=== PATIENT | male | born 1960 | race Two or more races ===

== ENCOUNTER → 2017-11-05 | Outpatient (CLI) | payer MEDICARE | END | disposition home or self-care (01) | LOC: RAD 09:50 | PROVIDERS: ATTEND Registered Nurse | DX: R13.10 Dysphagia, unspecified (principal) | CPT/HCPCS: 74230 ==

== ENCOUNTER → 2017-11-07 | Outpatient (CLI) | payer MEDICARE ==
[2017-11-07 13:33] LABS: ABG COLLECTION SITE LEFT RADIAL; COLLATERAL CIRCULATION TESTING NORMAL
== END | disposition home or self-care (01) ==
LOC: CARD 12:44
PROVIDERS: ATTEND Internal Medicine Critical Care Medicine
DX: R06.02 Shortness of breath (principal)
CPT/HCPCS: 36415; 82803

== ENCOUNTER 2018-01-14 07:39 | Day surgery (SDC) | payer MEDICARE ==
[~2018-01-14] VITALS: Ht 160 cm; Wt 65.9 kg
[2018-01-14] MEDS ORDERED: SODIUM CHLORIDE 0.9% 1,000 ML IV SCH (08:06)
[2018-01-14] MEDS ORDERED: CEFAZOLIN PMX 1GM/50ML 50 ML IV STA (08:06)
[2018-01-14] MEDS ORDERED: CEFAZOLIN PMX 1GM/50ML 50 ML ONE (08:11)
[2018-01-14] MEDS ORDERED: PLEASE ENTER HEIGHT AND WEIGHT MC SCH (08:30)
[2018-01-14] MEDS ORDERED: LIDOCAINE 2%, 20ML ONE ×2 (08:50)
[2018-01-14 08:55] VITALS: BP 119/82
[2018-01-14] MEDS ORDERED: FENTANYL PF 100 MCG/2ML ONE (08:56)
[2018-01-14] MEDS ORDERED: FLUMAZENIL 0.1 MG/1 ML, 5ML ONE (08:57)
[2018-01-14] MEDS ORDERED: NALOXONE 1 MG/ML, 2ML ONE (08:57)
[2018-01-14] MEDS ORDERED: MIDAZOLAM 1 MG/ML, 2ML ONE (08:57)
== END 2018-01-14 13:50 ==
LOC: OUT 07:39
PROVIDERS: ATTEND Psychiatry & Neurology Neurology
DX: Z45.2 Encounter for adjustment and management of vascular access device (principal); G12.21 Amyotrophic lateral sclerosis; Z51.11 Encounter for antineoplastic chemotherapy
CPT/HCPCS: 36561; 76937; 77001; 99156; 99157; C1788; C1894; J0690; J1642; J2250; J3010; J3490; J7030; J2310

== ENCOUNTER 2018-08-07 09:35 | Day surgery (SDC) | payer MEDICARE ==
[~2018-08-07] VITALS: Ht 160 cm; Wt 65.9 kg
[2018-08-07] MEDS ORDERED: SODIUM CHLORIDE 0.9% 1,000 ML IV SCH (10:11)
[2018-08-07 10:46] VITALS: BP 118/78
[2018-08-07] MEDS ORDERED: LIDOCAINE-MPF 2%, 2ML ONE (10:56)
[2018-08-07] MEDS ORDERED: FENTANYL PF 100 MCG/2ML ONE (11:00)
[2018-08-07] MEDS ORDERED: MIDAZOLAM 1 MG/ML, 5ML ONE (11:01)
[2018-08-07] MEDS ORDERED: FLUMAZENIL 0.1 MG/1 ML, 5ML ONE (11:01)
[2018-08-07] MEDS ORDERED: NALOXONE 1 MG/ML, 2ML ONE (11:01)
== END 2018-08-07 14:05 | disposition home or self-care (01) ==
LOC: OUT 09:35
PROVIDERS: ATTEND Psychiatry & Neurology Neurology
DX: Z45.2 Encounter for adjustment and management of vascular access device (principal); G12.21 Amyotrophic lateral sclerosis; Z88.8 Allergy status to other drugs, medicaments and biological substances; Z91.09 Other allergy status, other than to drugs and biological substances
CPT/HCPCS: 36590; 77001; 99156; 99157; J2250; J3010; J3490; J7030; J2310

== ENCOUNTER 2019-01-16 16:46 | Inpatient (IN) | payer MEDICARE ==
[~2019-01-16] VITALS: Ht 160 cm; Wt 56.4 kg
--- NOTE | 2019-01-16 17:16 | NUR ---
DAUGHTER STATED THAT PT HAS ALS AND HAS A COUGH FOR TWO DAYS. HE IS TAKING HYDROXYZINE BUT IT IS NOT HELPING.
[2019-01-16 17:29] LABS: RAPID INFLUENZA A Negative (Negative); RAPID INFLUENZA B Negative (Negative)
[2019-01-16] MEDS ORDERED: ALBUTEROL/IPRATROPIUM 2.5MG/0.5MG, 3 ML NPPB ONE (17:30)
--- NOTE | 2019-01-16 17:31 | NUR ---
Lab at bedside.
[2019-01-16] MEDS ORDERED: DEXT1CAP PO (17:34)
[2019-01-16] MEDS ORDERED: ALBUTEROL/IPRATROPIUM 2.5MG/0.5MG, 3 ML ONE (17:39)
[2019-01-16 17:51] LABS: BASOPHILS # (AUTO) 0.01 x10^3/uL (0-0.1); BASOPHILS % (AUTO) 0 % (0-1); EOSINOPHILS # (AUTO) 0.11 x10^3/uL (0-0.4); EOSINOPHILS % (AUTO) 1 % (1-7); LYMPHOCYTES # (AUTO) 0.82 x10^3/uL (1-3.4); LYMPHOCYTES % (AUTO) 8 % (22-44); MD NO; MEAN CORPUSCULAR HGB CONC 33.3 g/dL (33.2-36.2); MEAN CORPUSCULAR VOLUME 89.9 fL (81-97); MEAN PLATELET VOLUME 11.7 fL (7.4-10.4); MONOCYTES # (AUTO) 0.72 x10^3/uL (0.2-0.8); MONOCYTES % (AUTO) 7 % (2-9); NEUTROPHILS # (AUTO) 8.07 x10^3/uL (1.8-6.8); NEUTROPHILS % (AUTO) 83 % (42-75); PLATELET COUNT 184 x10^3/uL (130-400); RED BLOOD COUNT 5.85 x10^6/uL (4.38-5.82); RED CELL DISTRIBUTION WIDTH 15.9 % (9.4-14.8)
[2019-01-16 18:03] LABS: ALBUMIN 4.2 g/dL (3.4-5.0); ANION GAP 9 mmol/L (5-15); CALCIUM 9.5 mg/dL (8.5-10.1); CHLORIDE 111 mmol/L (98-107); CREATININE 0.69 mg/dL (0.7-1.3)
--- NOTE | 2019-01-16 18:14 | NUR ---
Pt reports feeling "a little better" after RT treatment. Remains on cont pulse ox, RN offered to help assist pt into a sitting position on [facility] to assist with breathing, pt refuses, states he is more comfortable lying on his left side.
[2019-01-16] MEDS ORDERED: AZITHROMYCIN 500 MG in SODIUM CHLORIDE 0.9% 250 ML IVPB ONE (18:30)
[2019-01-16] MEDS ORDERED: CEFTRIAXONE 1,000 MG in SODIUM CHLORIDE 0.9% 50 ML IVPB ONE (18:30)
[2019-01-16] MEDS ORDERED: SODIUM CHLORIDE FLUSH 10ML SYR IVF ONE (18:30)
[2019-01-16] MEDS ORDERED: CEFTRIAXONE PMX 1GM/50ML 50 ML ONE (18:50)
--- NOTE | 2019-01-16 19:13 | NUR ---
IV started, abx ready to start, per MD cultures to be drawn, no cultures ordered, will place as verbal order
--- NOTE | 2019-01-16 19:15 | NUR ---
First set of cultures drawn, awaiting second set from lab
[2019-01-16] MEDS ORDERED: SODIUM CHLORIDE FLUSH 10ML SYR IVF PRN (19:30)
--- NOTE | 2019-01-16 19:32 | NUR ---
Cultures drawn x2, abx infusing, hospitalist at bedside with daughter
[2019-01-16] MEDS ORDERED: ACETAMINOPHEN 325 MG TABLET PO PRN (20:30)
[2019-01-16] MEDS ORDERED: hydrALAzine 20 MG/ML, 1ML IVPush PRN (20:30)
[2019-01-16] MEDS ORDERED: GUAIFENESIN/DM 200-20MG, 10ML UDC PO PRN (20:30)
[2019-01-16] MEDS ORDERED: DOCUSATE 100 MG CAPSULE PO PRN (20:30)
[2019-01-16] MEDS ORDERED: ONDANSETRON ODT 4 MG PO PRN (20:30)
[2019-01-16] MEDS ORDERED: TEMAZEPAM 15 MG CAPSULE PO PRN (20:30)
--- NOTE | 2019-01-16 20:43 | NUR ---
Room assignment changed after inital report given, second report given to Elena RN, pt ready for transport.
--- NOTE | 2019-01-16 20:50 | NUR ---
Unable to contact floor RN calixto alexandre pt did not recieve first dose of zithro in ED, will continue to try to call floor, no answer x 3 attempts so far
[2019-01-16 21:49] VITALS: BP 114/83
[2019-01-16] MEDS ORDERED: AZITHROMYCIN 500 MG in SODIUM CHLORIDE 0.9% 250 ML IV SCH (22:35)
[2019-01-16] MEDS: ENOXAPARIN 40 MG/0.4 ML SQ SCH (23:29)
[2019-01-17] MEDS ORDERED: ALBUTEROL SULFATE 2.5 MG/3 ML NPPB PRN (00:30)
[2019-01-17 01:18] VITALS: BP 117/65
[2019-01-17 05:11] LABS: BASOPHILS # (AUTO) 0.05 x10^3/uL (0-0.1); BASOPHILS % (AUTO) 1 % (0-1); EOSINOPHILS # (AUTO) 0.07 x10^3/uL (0-0.4); EOSINOPHILS % (AUTO) 1 % (1-7); LYMPHOCYTES # (AUTO) 1.01 x10^3/uL (1-3.4); LYMPHOCYTES % (AUTO) 12 % (22-44); MD NO; MEAN CORPUSCULAR HEMOGLOBIN 29.9 pg (27.5-34.5); MEAN CORPUSCULAR HGB CONC 32.9 g/dL (33.2-36.2); MEAN CORPUSCULAR VOLUME 90.8 fL (81-97); MEAN PLATELET VOLUME 11.6 fL (7.4-10.4); MONOCYTES % (AUTO) 9 % (2-9); NEUTROPHILS # (AUTO) 6.29 x10^3/uL (1.8-6.8); NEUTROPHILS % (AUTO) 78 % (42-75); PLATELET COUNT 186 x10^3/uL (130-400); RED BLOOD COUNT 5.41 x10^6/uL (4.38-5.82); RED CELL DISTRIBUTION WIDTH 15.6 % (9.4-14.8)
[2019-01-17 05:16] LABS: ANION GAP 9 mmol/L (5-15); CALCIUM 9.3 mg/dL (8.5-10.1); CHLORIDE 110 mmol/L (98-107); CREATININE 0.68 mg/dL (0.7-1.3)
[2019-01-17 08:08] VITALS: BP 95/60
[2019-01-17] MEDS: AMPICILLIN/SULBACTAM 3 GM in SODIUM CHLORIDE 0.9% 100 ML IV SCH ×2 (13:16→18:17)
[2019-01-17] MEDS: DOXYCYCLINE 100MG TABLET PO SCH ×2 (13:32→20:17)
[2019-01-17 15:44] VITALS: BP 98/68
[2019-01-17 16:32] VITALS: BP 104/71
[2019-01-17 20:06] VITALS: BP 114/78
[2019-01-17] MEDS: ENOXAPARIN 40 MG/0.4 ML SQ SCH (20:17)
[2019-01-17] MEDS ORDERED: CEFTRIAXONE PMX 1GM/50ML 50 ML IV SCH (20:30)
[2019-01-18] MEDS: AMPICILLIN/SULBACTAM 3 GM in SODIUM CHLORIDE 0.9% 100 ML IV SCH ×4 (00:19→17:58)
[2019-01-18 03:16] VITALS: BP 155/88
[2019-01-18 08:44] VITALS: BP 107/72
[2019-01-18 08:50] LABS: BASOPHILS # (AUTO) 0.06 x10^3/uL (0-0.1); BASOPHILS % (AUTO) 1 % (0-1); EOSINOPHILS # (AUTO) 0.22 x10^3/uL (0-0.4); EOSINOPHILS % (AUTO) 4 % (1-7); LYMPHOCYTES # (AUTO) 0.76 x10^3/uL (1-3.4); LYMPHOCYTES % (AUTO) 14 % (22-44); MD NO; MEAN CORPUSCULAR HEMOGLOBIN 29.5 pg (27.5-34.5); MEAN CORPUSCULAR HGB CONC 32.7 g/dL (33.2-36.2); MEAN CORPUSCULAR VOLUME 90.2 fL (81-97); MEAN PLATELET VOLUME 11.3 fL (7.4-10.4); MONOCYTES # (AUTO) 0.59 x10^3/uL (0.2-0.8); MONOCYTES % (AUTO) 11 % (2-9); NEUTROPHILS # (AUTO) 3.73 x10^3/uL (1.8-6.8); NEUTROPHILS % (AUTO) 70 % (42-75); PLATELET COUNT 170 x10^3/uL (130-400); RED BLOOD COUNT 5.28 x10^6/uL (4.38-5.82); RED CELL DISTRIBUTION WIDTH 16.2 % (9.4-14.8)
[2019-01-18 08:52] LABS: ALBUMIN 3.4 g/dL (3.4-5.0); ANION GAP 8 mmol/L (5-15); CALCIUM 9.2 mg/dL (8.5-10.1); CHLORIDE 110 mmol/L (98-107); CREATININE 0.64 mg/dL (0.7-1.3)
[2019-01-18] MEDS: DOXYCYCLINE 50 MG/5 ML ORAL SUSP PO SCH ×2 (09:03→21:34)
[2019-01-18 12:47] VITALS: BP 107/74
[2019-01-18] MEDS: ENOXAPARIN 40 MG/0.4 ML SQ SCH (20:30)
[2019-01-18 21:00] VITALS: BP 115/83
[2019-01-19] MEDS: AMPICILLIN/SULBACTAM 3 GM in SODIUM CHLORIDE 0.9% 100 ML IV SCH ×4 (00:46→17:29)
[2019-01-19 01:14] VITALS: BP 95/65
[2019-01-19 07:42] VITALS: BP 93/59
[2019-01-19] MEDS: DOXYCYCLINE 50 MG/5 ML ORAL SUSP PO SCH (09:24)
[2019-01-19 14:00] VITALS: BP 112/76
[2019-01-19] MEDS ORDERED: AMOX1TAB64 PO (14:38)
[2019-01-19] MEDS ORDERED: DOXY50SY PO (14:38)
[2019-01-19] MEDS ORDERED: GUAI-103 PO (14:38)
== END 2019-01-19 18:05 | disposition home health service (06) | DRG 178 ==
LOC: ED 18:20 → EDIP 19:27 → 3NE 21:00
PROVIDERS: ADMIT Hospitalist; ATTEND Hospitalist
PROC: 5A09357 Assistance with Respiratory Ventilation, Less than 24 Consecutive Hours, Continuous Positive Airway Pressure (ICD-10-PCS; principal; 2019-01-17)
PROC: 5A09357 Assistance with Respiratory Ventilation, Less than 24 Consecutive Hours, Continuous Positive Airway Pressure (ICD-10-PCS; 2019-01-18)
PROC: 5A09357 Assistance with Respiratory Ventilation, Less than 24 Consecutive Hours, Continuous Positive Airway Pressure (ICD-10-PCS; 2019-01-19)
DX: J69.0 Pneumonitis due to inhalation of food and vomit (principal); G12.21 Amyotrophic lateral sclerosis; R09.02 Hypoxemia; Z66 Do not resuscitate; Z99.3 Dependence on wheelchair; R00.0 Tachycardia, unspecified
CPT/HCPCS: 36415; 71045; 74230; 80048; 82040; 83605; 84145; 85025; 87040; 87070; 87205; 87400; 94640; 96365; G0378; J0295; J0456; J0696; J1650; J7620; J7050

== ENCOUNTER → 2019-02-20 | Outpatient (CLI) | payer MEDICARE ==
[~2019-02-20] MED LIST: AMOX1TAB64 PO; DEXT1CAP PO; DOXY50SY PO; GUAI-103 PO
== END | disposition home or self-care (01) ==
LOC: CFH 13:38
PROVIDERS: ATTEND Psychiatry & Neurology Neurology
DX: G12.21 Amyotrophic lateral sclerosis (principal); J69.0 Pneumonitis due to inhalation of food and vomit; R13.10 Dysphagia, unspecified
CPT/HCPCS: 71046